=== PATIENT | male | born 1965 | race Caucasian/White ===

== ENCOUNTER 2019-03-23 08:14 | Day surgery (SDC) | payer OTHER ==
[2019-03-19 10:57] VITALS: BMI 29.6
[~2019-03-23 08:14] MED LIST: LACTATED RINGERS 1,000 ML IV SCH; LIDOCAINE 1% 20 ML VIAL (10MG/ML) FOR IV START INTRADERMA PRN
[2019-03-23 08:28] VITALS: TEMP 97.8
[2019-03-23] MEDS ORDERED: LACTATED RINGERS 1,000 ML IV ONE (08:28)
[2019-03-23] MEDS ORDERED: PROPOFOL 10 MG/ML 20 ML VIAL IV ONE (09:12)
--- NOTE | 2019-03-23 09:14 | P.GSHP ---
History of Present Illness H&P Date: 03/23/19 Chief Complaint: Screening colonoscopy This a 53-year-old male who presents today for screening colonoscopy. Patient denies a significant GI complaints. Past Medical History Additional Past Medical History / Comment(s): right sciatic nerve pain History of Any Multi-Drug Resistant Organisms: None Reported Past Surgical History: Orthopedic Surgery Additional Past Surgical History / Comment(s): left hand sx Past Anesthesia/Blood Transfusion Reactions: No Reported Reaction Smoking Status: Never smoker Medications and Allergies Home Medications Medication Instructions Recorded Confirmed Type Cyclobenzaprine [Flexeril] 5 mg PO HS 03/19/19 03/19/19 History Gabapentin [Neurontin] 100 mg PO HS 03/19/19 03/19/19 History Ibuprofen [Advil] 600 mg PO QAM 03/19/19 03/19/19 History Allergies Allergy/AdvReac Type Severity Reaction Status Date / Time Penicillins Allergy Rash/Hives Verified 03/19/19 10:52 shellfish derived [Shellfish] Allergy Rash/Hives/throat Verified 03/19/19 10:52 swelling Surgical - Exam Vital Signs Temp Pulse Resp BP Pulse Ox 97.8 F 95 18 141/76 96 03/23/19 08:27 03/23/19 08:27 03/23/19 08:27 03/23/19 08:27 03/23/19 08:27 - General well developed, well nourished, no distress - Eyes PERRL - ENT normal pinna - Neck no masses - Respiratory normal expansion - Cardiovascular Rhythm: regular - Abdomen Abdomen: soft, non tender Assessment and Plan Assessment: We'll perform screening colonoscopy.
--- NOTE | 2019-03-23 09:27 | P.OP ---
Date of Procedure: 03/23/19 Preoperative Diagnosis: Screening colonoscopy Postoperative Diagnosis: Hemorrhoids Procedure(s) Performed: Colonoscopy Anesthesia: MAC Surgeon: Ezequiel Quintanilla Pathology: none sent Condition: stable Disposition: PACU Description of Procedure: The patient's placed on the endoscopy table in the lateral position. He received IV sedation. Digital rectal exam was performed which revealed internal and external hemorrhoids. The prostate was symmetrical without nodules. Flexible colonoscope was then placed patient anus and passed throughout the entire colon. The ileocecal valve was visualized. Cecum, ascending and transverse colon appeared normal. The descending and sigmoid colon had a few scattered diverticula. Scope was then brought back the rectum this appeared normal. Scope was withdrawn for patient.
[2019-03-23 09:56] VITALS: BP 121/77; PULSE 71; RESP 16
== END 2019-03-23 10:20 | disposition home or self-care (01) ==
LOC: ORWHC2ENDO 08:14
PROVIDERS: ATTEND Surgery
DX: Z12.11 Encounter for screening for malignant neoplasm of colon (principal); K64.8 Other hemorrhoids; K64.4 Residual hemorrhoidal skin tags; K57.30 Diverticulosis of large intestine without perforation or abscess without bleeding; M54.31 Sciatica, right side; Z98.890 Other specified postprocedural states; Z79.899 Other long term (current) drug therapy; Z79.1 Long term (current) use of non-steroidal anti-inflammatories (NSAID); Z88.0 Allergy status to penicillin; Z91.013 Allergy to seafood
CPT/HCPCS: J2704; G0121

== ENCOUNTER → 2019-03-26 | Outpatient (CLI) | payer OTHER ==
--- NOTE | 2019-03-26 10:54 | MR ---
EXAMINATION TYPE: MR lumbar spine wo con DATE OF EXAM: 03/26/2019 COMPARISON: NONE HISTORY: Low back pain / Radiculopathy, lumbar TECHNIQUE: T1 and T2 axial and sagittal images of the lumbar spine are submitted. FINDINGS: There is no abnormal signal seen within the visualized spinal cord or paraspinal soft tissu es. Retroaortic left renal vein noted. At L1-2 there is broad-based central disc bulging with mild flattening the thecal sac but no canal st enosis. Neural foramina remain patent. At L2-3 there is broad-based left paracentral disc protrusion with mild flattening of the thecal sac. Neural foramina remain patent. At L3-4 there is mild degenerative disc disease with broad-based central and disc bulging slightly gr eater paracentrally to the left. Facet arthropathy noted. Mild flattening of the thecal sac. Neural f oramina remain patent At L4-5 there is central disc protrusion with facet arthropathy and ligamentum flavum hypertrophy re sult in severe canal stenosis and moderate bilateral foraminal encroachment. There does appear to be slight anterolisthesis measuring 1 to 2 mm. At L5-S1 there is broad-based central disc protrusion greater paracentrally and laterally the right w ith hypertrophic change of the facets. Moderate canal stenosis. There is moderate to severe bilateral foraminal encroachment. IMPRESSION: 1. Broad-based central disc protrusion greater paracentrally and laterally to the right L5-S1 with mo derate canal stenosis. Facet arthropathy contributes and there is moderate to severe bilateral forami nal encroachment 2. Slight anterolisthesis L4 on L5 with broad-based central disc protrusion or herniation seen. Hyper trophic changes contribute to severe canal stenosis and bilateral foraminal encroachment. 3. Remaining levels demonstrate areas of disc bulging or protrusion with flattening of the thecal sac as discussed above.
== END | disposition home or self-care (01) ==
LOC: RADMRIMAIN 09:43
PROVIDERS: ATTEND Physical Medicine & Rehabilitation
DX: M48.07 Spinal stenosis, lumbosacral region (principal); M51.27 Other intervertebral disc displacement, lumbosacral region; M43.16 Spondylolisthesis, lumbar region; M46.96 Unspecified inflammatory spondylopathy, lumbar region; M54.16 Radiculopathy, lumbar region; I10 Essential (primary) hypertension; F12.90 Cannabis use, unspecified, uncomplicated
CPT/HCPCS: 72148

== ENCOUNTER → 2021-08-30 | Outpatient (CLI) | payer OTHER ==
[2021-08-30 08:13] VITALS: BP 160/89; PULSE 74; RESP 18
--- NOTE | 2021-08-30 08:24 | P.CON ---
Consult Note - . Consult date: 08/30/21 Assessment/Plan:: HISTORY OF PRESENT ILLNESS: 56 yr old male as a referral from Dr Wood presents today with lower back pain secondary to disc bulges, DDD, neuroforaminal stenoses, spinal stenosis and facet arthropathy for evaluation. Patient states his lower back pain as 10 out of 10 in intensity, sharp, stabbing in the lower aspects of his lumbar spine where his tailbone is, right side greater than left, with sharp shooting pain to the right buttock and right lower extremity. Pain is provoked with bending. Pain is relieved with medications (Tramadol, Robaxin from Dr. Wood. Advil OTC), topicals which provided no pain relief, injections 2 years ago, heat, home based stretching regimen, use of a crutch as needed and rest. Past Medical History / Comment(s): R Sciatica Past Surgical History: L Hand Surgery Social History: Never smoker. Occasional ETOH use. No illicit drug use. and lives with and son. Family History: Non contributory All: See list Meds: See list REVIEW OF ORGAN SYSTEMS: CONSTITUTIONAL: No fevers or chills. No recent weight loss. HEENT: No visual acuity loss, eye pain, difficulties with hearing. No nosebleeds. No difficulty swallowing. RESPIRATORY: Denies any troubles with breathing or dyspnea on exertion. CARDIOVASCULAR: Denies any chest pain, palpitations, or recent heart attacks. GASTROINTESTINAL: Denies fatty food intolerance. Has change in bowel habits and gas bloat. GENITOURINARY: Denies any blood in urine. Has increased urinary frequency. NEUROLOGICAL: + numbness and tingling along the distal extremities. No seizure disorders or headaches. MUSCULOSKELETAL: + back pain SKIN: No skin cancer. No rash. PSYCHIATRIC: Denies current depression or suicidal thoughts. ENDOCRINE: Denies current thyroid disorders. Denies any blood sugar glucose intolerance. HEME/LYMPHATIC: Denies any lumps and bumps around the neck. History of deep venous thrombosis. ALLERGY/IMMUNOLOGY: No immunoglobulin therapy. No immune deficiencies. BREAST: Denies current breast lumps, pain or nipple discharge. Physical Examinations : Constitutional : Cooperative , not in acute distress . HEENT: Neck supple. No Lymphadenopathy. Normal thyroid size . Eyes no ptosis , no icterus, no photophobia . Hearing intact. Normal oropharynx. No Thrush. Respiratory : Chest clear to auscultations bilaterally. No wheezing. No rhonchi. Cardiovascular : Regular rate and rhythm , S1 / S2. No S3 . No S4. Gastrointestinal : Abdomen soft. No tenderness. Bowel sounds x 4. No organomegaly . Genitourinary : Deferred. Neurologic : Cranial nerve II to XII intact. No focal neurological deficits. Psychiatric : alert & oriented x 3. Matching mood & appropriate affect. Judgment & insight intact. Lymphatic No Lymphadenopathy. Musculoskeletal : Cervical Spine Motor strength in the deltoid and biceps: Normal right side. Normal Left side Motor strength biceps and the wrist extensors: Normal right side . Normal left side Motor strength in the triceps muscle: Normal right side. Normal left side Deep tendon reflexes: Normal at the biceps. Normal at Brachioradialis. Normal at triceps Cervical facet loading test: positive bilaterally Spurling test: positive bilaterally Neck distraction test: positive bilaterally Mandi sign: positive bilaterally Lumbar spine Motor strength lower extremities ,thigh and legs 5/5 Right side , 5/5 Left side Deep tendon reflexes : Normal Knee Jerk. Normal Ankle Jerk Vertebral body tenderness over Lumbar facet Loading Test: positive Right / positive Left Range of motion of the lumbar spine Flexion 30 degrees, extension 10 degrees Straight Leg Raise test: Left/ Right positive at degree Berry test: positive right / positive left. Severe tenderness over the Sacroiliac joint on the Right / Left sides Gaenslen test: positive on the right Seated flexion test: positive on the right Imaging: MRI of the Lumbar spine without contrast from 03/26/19 reviewed. Assessment/ Plan : Recommendation of right SI joint injection #1. May need a series of injections to obtain optimal pain relief. Risks, benefits of procedure discussed and patient verbalized understanding. Denies aspirin or anti- coagulant use. Denies medical history of diabetes. All questions answered. I have spent greater than 50 minutes on patient care today. Dr Ham was available by phone for the evaluation of this patient. The time was used to review the medical records including relevant urine studies and Prescription history (MAPs), review of the available imaging, evaluation and examination of the patient, coordination of care with the medical staff and if applicable referring physicians, as well as creation of the medical record PQRS Measure Charge Sheet Mode of Arrival: Ambulatory - Pain Location Right Buttock Non-Pharmacological Interventions: Heat, Home Exercise, Inactivity, Position/Reposition, Sitting, Stretching Pharmacological Interventions: PRN Medication, Topical Medication PQRS Narrative: Smoking Status Never smoker Blood Pressure 160/89 Pain Intensity [Right Buttock] 10 Scale Used Numeric (1 - 10) Hx Alcohol Use (MH) Yes: Rare Home Medications: Ambulatory Orders Ibuprofen [Advil] 400 mg PO QID 03/19/19 Methocarbamol [Robaxin-750] 750 mg PO Q4H 08/29/21 traMADol HCL 50 mg PO Q4H 08/29/21
== END ==
LOC: PNWHC3 07:35
PROVIDERS: ATTEND Specialist
DX: M54.42 Lumbago with sciatica, left side (principal); M54.41 Lumbago with sciatica, right side; Z88.0 Allergy status to penicillin; Z91.013 Allergy to seafood
CPT/HCPCS: 99211